=== PATIENT | male | born 1995 | race Caucasian/White ===

== ENCOUNTER 2020-07-30 23:15 | Emergency (ER) | payer SELFPAY ==
[2020-07-30] MEDS ORDERED: CLINDAMYCIN HCL 150 MG CAPSULE PO ONE (23:48)
--- NOTE | 2020-07-30 23:51 | ER Document Report ---
ED Skin Rash/Insect Bite/Abscs - General Chief Complaint: Rash Stated Complaint: LEG RASH POSSIBLE MRSA Time Seen by Provider: 07/30/20 23:47 Notes: CHIEF COMPLAINT: Rash on left leg HPI: 24-year-old male with a 2-week rash on the left leg progressively worsening. States he went to a clinic 2 days ago and was told he might have MRSA. States he was started on Bactrim 1 pill a day and mupirocin ointment but states the rash is continuing to spread now with some erythema extending up above the knee. Has not had fever or chills. ROS: See HPI - all other systems were reviewed and are otherwise negative Constitutional: no fever Integumentary: Positive rash Allergy: no hives Musculoskeletal: Positive extremity pain or swelling Neurological: no numbness/tingling, no weakness MEDICATIONS: I agree with the patient medications as charted by the RN. ALLERGIES: I agree with the allergies as charted by the RN. PAST MEDICAL HISTORY/PAST SURGICAL HISTORY: Reviewed and agree as charted by RN. SOCIAL HISTORY: Reviewed and agree as charted by RN. FAMILY HISTORY: No significant familial comorbid conditions directly related to patient complaint EXAM: Reviewed vital signs as charted by RN. CONSTITUTIONAL: Alert and oriented and responds appropriately to questions. Well-appearing; well-nourished HEAD: Normocephalic; atraumatic EYES: conjunctivae clear, sclerae non-icteric ENT: normal nose; no rhinorrhea; moist mucous membranes NECK: Supple without meningismus CARD: RRR; no murmurs, no clicks, no rubs, no gallops; symmetric distal pulses RESP: Normal chest excursion without splinting or tachypnea ABD/GI: non-distended BACK: The back appears normal EXT: Normal ROM in all joints; no cyanosis, no effusions, no edema SKIN: Normal color for age and race; warm; dry; good turgor; multiple scabbed lesions are noted to the left lower leg. There are also multiple scabbed lesions on the bilateral forearms. There is some erythema on the anterior medial aspect of the left calf. No indurated regions or fluctuant region sugge sting abscess. NEURO: Moves all extremities equally; Motor and sensory function intact PSYCH: The patient's mood and manner are appropriate. Grooming and personal hygiene are appropriate. MDM: 24-year-old male with an MRSA infection of the left leg. Has been significantly underdosed on his Bactrim only taking 1 pill a day over the last 2 days now with progressive spread of the lesions. Will obtain baseline screening labs a blood culture, CBC CMP. Will have nursing obtain a wound culture from the scabbed lesions to ensure we do not have a resistant bacteria and will switch patient to clindamycin for MRSA coverage - Related Data Allergies/Adverse Reactions: No Known Allergies Allergy (Unverified 07/30/20 23:43) Past Medical History - Social History Smoking Status: Current Some Day Smoker Chew tobacco use (# tins/day): No Frequency of alcohol use: Occasional Drug Abuse: None Family History: Reviewed & Not Pertinent Physical Exam - Vital signs Vitals: Temp Pulse Resp BP Pulse Ox 98.4 F 96 20 153/96 H 97 07/30/20 23:20 07/30/20 23:20 07/30/20 23:20 07/30/20 23:20 07/30/20 23:20 Course - Re-evaluation Re-evalutation: 07/31/20 01:10 Lab work does not show acute emergent abnormalities. Will discharge home on clindamycin follow-up 48 hours recheck if symptoms worsen - Vital Signs Vital signs: Temp Pulse Resp BP Pulse Ox 98.4 F 96 20 153/96 H 97 07/30/20 23:20 07/30/20 23:20 07/30/20 23:20 07/30/20 23:20 07/30/20 23:20 - Laboratory Result Diagrams: 07/31/20 00:25 07/31/20 00:25 Discharge - Discharge Clinical Impression: Staph skin infection Condition: Stable Disposition: HOME, SELF-CARE Instructions: MRSA Cellulitis ([facility]) Additional Instructions: Stop the Bactrim and start the clindamycin as prescribed. Return in 48 hours if symptoms have worsened, continue antibiotics if symptoms have improved Prescriptions: Clindamycin HCl 300 mg PO TID #30 capsule Referrals: NUBIA العراقي MD [ACTIVE STAFF] - Follow up as needed
[2020-07-31 00:39] LABS: ABSOLUTE BASOPHILS # (AUTO) 0.1 10^3/uL (0.0-0.2); ABSOLUTE EOSINOPHILS # (AUTO) 0.3 10^3/uL (0.0-0.6); ABSOLUTE LYMPHOCYTES (AUTO) 2.9 10^3/uL (0.5-4.7); ABSOLUTE MONOCYTES (AUTO) 1.1 10^3/uL (0.1-1.4); BASOPHILS % (AUTO) 0.8 % (0-2); EOSINOPHILS % (AUTO) 2.5 % (0-6); HEMATOCRIT 44.3 % (37.9-51.0); HEMOGLOBIN 15.1 g/dL (13.5-17.0); MEAN CORPUSCULAR HEMOGLOBIN 30.5 pg (27.0-33.4); MEAN CORPUSCULAR HGB CONC 34.1 g/dL (32.0-36.0); MEAN CORPUSCULAR VOLUME 89 fl (80-97); MONOCYTES % (AUTO) 10.6 % (3-13); PLATELET COUNT 198 10^3/uL (150-450); RED BLOOD COUNT 4.95 10^6/uL (4.35-5.55); RED CELL DISTRIBUTION WIDTH 13.2 % (11.5-14.0); SEGMENTED NEUTROPHILS % (AUTO) 58.1 % (42-78); TOTAL CELLS COUNTED % (AUTO) 100 %; WHITE BLOOD COUNT 10.4 10^3/uL (4.0-10.5)
[2020-07-31 01:03] LABS: ALBUMIN 4.9 g/dL (3.5-5.0); ALKALINE PHOSPHATASE 81 U/L (38-126); ANION GAP 13 (5-19); ASPARTATE AMINO TRANSFERASE 30 U/L (17-59); BILIRUBIN,DIRECT 0.3 mg/dL (0.0-0.4); BILIRUBIN,TOTAL 0.7 mg/dL (0.2-1.3); BLOOD UREA NITROGEN 13 mg/dL (7-20); CALCIUM 9.8 mg/dL (8.4-10.2); CARBON DIOXIDE 23 mmol/L (22-30); CHLORIDE 106 mmol/L (98-107); GLUCOSE 86 mg/dL (75-110); POTASSIUM 3.9 mmol/L (3.6-5.0); TOTAL PROTEIN 7.9 g/dL (6.3-8.2)
[2020-07-31 01:24] VITALS: BP 120/78
== END 2020-07-31 01:30 | disposition home or self-care (01) ==
LOC: ER 23:15
DX: L08.9 Local infection of the skin and subcutaneous tissue, unspecified (principal); B95.62 Methicillin resistant Staphylococcus aureus infection as the cause of diseases classified elsewhere; F17.200 Nicotine dependence, unspecified, uncomplicated
CPT/HCPCS: 36415; 80053; 85025; 87040; 87070; 87077; 87186; 87205; 99283